=== PATIENT | female | born 1945 | race Caucasian/White ===

== ENCOUNTER 2016-11-18 09:06 | Inpatient (IN) | payer MEDICARE, OTHER ==
[~2016-11-18 09:06] MED LIST: AMLODIPINE BESYL5 MG PO; ASPIR 8181 MG PO; ASPIRIN EC81 MG PO; ASPIRIN325 M3 PO; BACTROBAN22 G1 NS; CALCIUM CARBON500 M2 PO; DULCOLAX5 M1 PO; LASIX20 M1 PO; LOW DOSE ASPIRI81 M3 PO; MOBIC15 M2 PO; MULTIVITAMINS1 EAC6 PO; NORVASC5 M1 PO; NORVASC5 M2 PO; OMEPRAZOLE20 M3 PO; TRIAMTERENE-HC1 EAC3 PO; TYLENOL325 M2 PO; ULTRAM50 M1 PO; [UNRECOGNIZED DRUG - MIXTURE]; [UNRECOGNIZED DRUG - OTHER] PO
[2016-11-18 10:28] LABS: INR 0.9 INR (0.9-1.1); PROTHROMBIN TIME 10.6 SECONDS (9.0-13.6)
[2016-11-19 05:33] LABS: BASO % 0.1 % (0-2); EOS % 0.1 % (0-7); HCT-HEMATOCRIT 37.5 % (34.0-49.0); HGB-HEMOGLOBIN 12.1 gm/dl (12.0-15.5); IMMATURE GRANULOCYTES ABSOLUTE 0.08 tho/cmm (0-0.03); IMMATURE GRANULOCYTES PERCENT 0.5 % (0-0.3); LYMPH % 6.2 % (20-45); LYMPH ABSOLUTE COUNT 1.1 tho/cmm (0.8-4.5); MCH (MEAN CORPUSCULAR HGB) 29.5 pg (28.0-32.0); MCHC MEAN CORPUSCULAR HGB CONC 32.3 % (32.0-36.0); MCV (MEAN CELL VOLUME) 91.5 fl (82.0-96.0); MONO % 9.1 % (0-12); MONOCYTE ABSOLUTE COUNT 1.6 tho/cmm (0.0-1.2); NEUTROPHIL ABSOLUTE COUNT 14.6 tho/cmm (1.6-8.0); NEUTROPHIL-AUTOMATED 14.6 tho/cmm (1.6-8.0); PLATELET COUNT 281 tho/cmm (150-450); RED CELL DISTRIBUTION WIDTH 13.8 % (12.4-16.4); WHITE BLOOD COUNT 17.3 tho/cmm (4.0-10.0)
[2016-11-20] MEDS ORDERED: ASPIRIN81 M1 PO (14:40)
[2016-11-20] MEDS ORDERED: MOBIC7.5 M2 PO (14:41)
[2016-11-20] MEDS ORDERED: ULTRAM50 M1 PO (14:42)
[2016-11-20] MEDS ORDERED: TYLENOL325 M2 PO (14:43)
[2016-11-20] MEDS ORDERED: MILK OF MAGNESIA PO (14:44)
[2016-11-20] MEDS ORDERED: SENNA PLUS TAB1 EAC1 PO (14:45)
[2016-11-20] MEDS ORDERED: OXYCODONE HCL5 M1 PO (14:46)
== END 2016-11-20 16:10 | DRG 470 ==
LOC: SHSB 09:06 → ORE 12:37 → PACU 14:38 → 5EA 16:02
PROVIDERS: ADMIT Orthopaedic Surgery Foot and Ankle Surgery
PROC: 0SRB02A Replacement of Left Hip Joint with Metal on Polyethylene Synthetic Substitute, Uncemented, Open Approach (ICD-10-PCS; principal; 2016-11-18)
DX: M16.12 Unilateral primary osteoarthritis, left hip (principal); I11.0 Hypertensive heart disease with heart failure; Z68.42 Body mass index [BMI] 45.0-49.9, adult; I50.9 Heart failure, unspecified; G54.0 Brachial plexus disorders; M54.9 Dorsalgia, unspecified; G47.33 Obstructive sleep apnea (adult) (pediatric); M17.9 Osteoarthritis of knee, unspecified; R11.0 Nausea; E66.01 Morbid (severe) obesity due to excess calories; Z88.1 Allergy status to other antibiotic agents
CPT/HCPCS: C1776; J0171; J0690; J1885; J2175; J2270; J2405; J2795